=== PATIENT | male | born 1975 | race Caucasian/White ===

== ENCOUNTER 2019-04-09 08:18 | Emergency (ER) | payer OTHER ==
[~2019-04-09] VITALS: Ht 185.4 cm; Wt 102.1 kg
== END 2019-04-09 13:02 | disposition home or self-care (01) ==
LOC: ER 08:18 → EDBD 08:31 → ER 13:02
DX: L03.116 Cellulitis of left lower limb (principal); M10.072 Idiopathic gout, left ankle and foot; M79.672 Pain in left foot

== ENCOUNTER 2019-04-12 17:16 | Emergency (ER) | payer OTHER ==
[~2019-04-12] VITALS: Ht 185.4 cm; Wt 102.1 kg
== END 2019-04-12 22:32 | disposition home or self-care (01) ==
LOC: ER 17:16
DX: L03.115 Cellulitis of right lower limb (principal)